=== PATIENT | female | born 1950 | race Caucasian/White ===

== ENCOUNTER 2022-08-02 09:43 | Day surgery (SDC) | payer MEDICARE, BC, SELFPAY ==
[2022-07-26 14:56] VITALS: BMI 28.7
--- NOTE | 2022-07-29 13:53 | MHC.SHP ---
Pre-Procedural Eval Section A Date of Service: 07/29/22 The patient is an INPATIENT: No Changes since office visit: No Cold of Flu in the past 2 weeks, No New Medical Problems, No Changes in Medication and No Patient answered all questions The History & Physical has been completed within 30 days and I have reviewed it.: Yes Section B Chief Complaint: Age-related nuclear cataract, left eye Plan Diagnosis/Plan: Unchanged I have reviewed the history and physical and performed a pertinent physical examination on my patient. No changes have occurred unless specified.
--- NOTE | 2022-07-30 10:17 | HO.ANESPROP2 ---
Documented by User: Yuli Rascon NP 07/30/22 10:18 HPI - Anesthesia Eval Consult details Narrative: 72yo F for Left Cataract Extraction IOL Insertion PCP cleared No previous cataract on record PMFSH Past Medical History Medical History Elevated cholesterol Osteoporosis Surgical History Surgical History Hx of colonoscopy Hx of hand surgery Hx of wisdom tooth extraction Social History Social History Are you a primary career guidance technician to a significant other at home: No Do you presently have visiting nurse or other home services: No Patient Tobacco Use Status: Never used Tobacco Use of substances other than those prescribed or required for medical reasons: No Have you been hit, kicked, punched, or otherwise hurt by someone within the past year? If so, by whom?: No Are you DNR?: No Advance Directives: No Advance Directives Information Provided: Yes Advance Directives on File: No Recently lost weight without trying: No Meds Allergies Allergy/AdvReac Type Severity Reaction Status Date / Time alendronate sodium Allergy Hives Verified 07/29/22 14:50 Home Medications Medication Instructions Recorded Confirmed Last Taken Type atorvastatin 40 mg tablet 1 tab PO DAILY 07/26/22 07/26/22 Unknown History cholecalciferol (vitamin D3) 25 25 mcg PO DAILY 07/26/22 07/26/22 Unknown History mcg (1,000 unit) capsule (Vitamin D3) coQ10 (ubiquinol) 100 mg capsule 200 mg PO DAILY 07/26/22 07/26/22 Unknown History flaxseed oil 1,000 mg capsule 1,000 mg PO DAILY 07/26/22 07/26/22 Unknown History multivitamin 1 tab PO DAILY 07/26/22 07/26/22 Unknown History Exam Exam Date and Time: July 30, 2022 1017 Height,Weight and Vital Signs: Height 5 ft Weight 66.678 kg Assessment and Plan Assessment Anesthesia Assessment: Chart Reviewed Documented by User: Raghu Gordon MD 08/02/22 12:07 [facility] Past Medical History Medical History Elevated cholesterol Osteoporosis Family History Family history of problems with anesthesia: No Surgical History Surgical History Hx of colonoscopy Hx of hand surgery Hx of wisdom tooth extraction History of Problems with Anesthesia: No Social History Social History Are you a primary career guidance technician to a significant other at home: No Do you presently have visiting nurse or other home services: No Patient Tobacco Use Status: Never used Tobacco Use of substances other than those prescribed or required for medical reasons: No Have you been hit, kicked, punched, or otherwise hurt by someone within the past year? If so, by whom?: No Are you DNR?: No Advance Directives: No Advance Directives Information Provided: Yes Advance Directives on File: No Recently lost weight without trying: No Meds Allergies Allergy/AdvReac Type Severity Reaction Status Date / Time alendronate sodium Allergy Hives Verified 07/29/22 14:50 Home Medications Medication Instructions Recorded Confirmed Last Taken Type atorvastatin 40 mg tablet 1 tab PO DAILY 07/26/22 07/26/22 Unknown History cholecalciferol (vitamin D3) 25 25 mcg PO DAILY 07/26/22 07/26/22 Unknown History mcg (1,000 unit) capsule (Vitamin D3) coQ10 (ubiquinol) 100 mg capsule 200 mg PO DAILY 07/26/22 07/26/22 Unknown History flaxseed oil 1,000 mg capsule 1,000 mg PO DAILY 07/26/22 07/26/22 Unknown History multivitamin 1 tab PO DAILY 07/26/22 07/26/22 Unknown History Exam Airway Mallampati Class: II TM Dist: >3cm Neck ROM: Full Loose/Missing/Broken Teeth: Yes (many crowns, 1 upper craacked crown) Heart: rrr+[id number] Lungs: cta b/l Assessment and Plan Assessment Anesthesia Assessment: Anesthesia Plan Discussed Final Anesthetic Review Family History of Problems with Anesthesia: No History of Problems with Anesthesia: No NPO: Yes ASA Class: II Final Preanesthetic Review: No Changes in Pt Med Stat, Meds/Allgs Chart Reviewed, Consent Obtained/Reviewed and Anes Risks/Benef Reviewed Patient Risk: Intermediate Procedure Risk: Low Assessment/Block/Sedation in SS: Assess/Block/Sedation-SS Anesthetic Plan Anesthetic Plan: MAC: and Agree w/ Assess. and Plan Disposition: Standard PACU
[2022-08-02 11:44] VITALS: BP 149/69; PULSE 76; RESP 16; TEMP 36.7; O2SAT 95
[2022-08-02] MEDS: Tetracaine HCl/PF 0.5% Oph Sol 4 ML DROPS 1 DROP EYE-LEFT (11:50)
[2022-08-02] MEDS: Lactated Ringers 500 ML 50 ML IV (11:57)
[2022-08-02] MEDS: Cyclopentolate 1 % Ophth Sol 2 ML DRPBTL 1 DROP EYE-LEFT ×3 (11:57→12:06)
[2022-08-02] MEDS: Tropicamide 1 % Ophth Sol 3 ML BTL 1 DROP EYE-LEFT ×3 (11:58→12:07)
[2022-08-02] MEDS: Phenylephrine HCL 2.5% Oph SoL 2 ML BOTTLE 1 DROP EYE-LEFT ×3 (12:00→12:09)
--- NOTE | 2022-08-02 13:11 | HO.PNOPHT ---
Ophthalmology Procedure Procedure Date of Service: 08/02/22 Ophthalmology Viscoelastic: Healon Duet Dual Pack Pro Ophthalmology Lenses: TECNIS [id number] (16.5) Procedure Notes: PREOPERATIVE DIAGNOSIS: Decreased visual acuity left eye secondary to cataract POSTOPERATIVE DIAGNOSIS: Same PROCEDURE: Left cataract extraction with intraocular lens insertion SURGEON: Shalom Navarrete M.D. ANESTHESIA: Topical/MAC ESTIMATED BLOOD LOSS: None COMPLICATIONS: None After obtaining informed consent, the patient was brought to the operation room suite and placed in the supine position. After adequate sedation per anesthesia, topical drops of Tetracaine were given to the left eye. The eye was then prepped and draped in the usual sterile fashion. The operating room microscope was then positioned over the operative eye and a lid speculum placed. A paracentesis was created. Viscoelastic was then instilled into the anterior chamber. A three plane incision was then created temporally, utilizing a 2.85 mm keratome. Capsulotomy forceps were then utilized to create a circular tear capsulotomy. Hydrodissection and hydrodelineation were carried out until adequate mobilization of the nucleus occurred. Phacoemulsification was then utilized to remove the dense central nucleus followed by removal of the cortical material utilizing the automated aspiration irrigation unit. Viscoat elastic was instilled into the posterior capsular bag followed by placement of a posterior chamber intraocular lens without difficulty. The residual Viscoat elastic was then removed utilizing the automated IA machine. The wound was check and found to be watertight. The patient tolerated the procedure well and the lid speculum was removed. Intracameral injection of Vigamox 0.1 mL followed by a subtenon injection of Kenalog-40 0.2 mL were administered. The patient will be seen in the a.m.
[2022-08-02 13:45] VITALS: BP 138/73; PULSE 81; RESP 16; TEMP 36.1; O2SAT 95
== END 2022-08-02 13:57 | disposition home or self-care (01) ==
PROVIDERS: PCP Internal Medicine; Visit Provider Ophthalmology
PROC: (CPT 66985; principal; 2022-08-02 13:00)
DX: H25.12 Age-related nuclear cataract, left eye (principal); H52.4 Presbyopia; H35.433 Paving stone degeneration of retina, bilateral; Z83.511 Family history of glaucoma; E78.00 Pure hypercholesterolemia, unspecified; Z88.8 Allergy status to other drugs, medicaments and biological substances; Z79.899 Other long term (current) drug therapy
CPT/HCPCS: 66984; J2250; J3010; J3300; V2632

== ENCOUNTER 2022-08-16 09:56 | Day surgery (SDC) | payer MEDICARE, BC, SELFPAY ==
[2022-07-26 14:58] VITALS: BMI 28.7
--- NOTE | 2022-08-13 08:58 | P.CONAN_ITS ---
Documented by User: Yuli Rascon NP 08/13/22 08:58 HPI - Anesthesia Eval Consult details Narrative: 72yo F for Right Cataract Extraction IOL Insertion PCP cleared Left eye 08/02/22 with MAC: Fent 50, Midaz 2 PMFSH Past Medical History Medical History Elevated cholesterol Osteoporosis PONV (postoperative nausea and vomiting) Family History Family history of problems with anesthesia: No Surgical History Surgical History Hx of colonoscopy Hx of hand surgery Hx of wisdom tooth extraction History of Problems with Anesthesia: No Social History Social History Are you a primary home health care provider to a significant other at home: No Do you presently have visiting nurse or other home services: No Patient Tobacco Use Status: Never used Tobacco Use of substances other than those prescribed or required for medical reasons: No Have you been hit, kicked, punched, or otherwise hurt by someone within the past year? If so, by whom?: No Are you DNR?: No Advance Directives: No Advance Directives Information Provided: Yes Advance Directives on File: No Recently lost weight without trying: No Meds Allergies Allergy/AdvReac Type Severity Reaction Status Date / Time alendronate sodium Allergy Hives Verified 07/29/22 14:50 Home Medications Medication Instructions Recorded Confirmed Last Taken Type atorvastatin 40 mg tablet 1 tab PO DAILY 07/26/22 07/26/22 Unknown History cholecalciferol (vitamin D3) 25 25 mcg PO DAILY 07/26/22 07/26/22 Unknown History mcg (1,000 unit) capsule (Vitamin D3) coQ10 (ubiquinol) 100 mg capsule 200 mg PO DAILY 07/26/22 07/26/22 Unknown History flaxseed oil 1,000 mg capsule 1,000 mg PO DAILY 07/26/22 07/26/22 Unknown History multivitamin 1 tab PO DAILY 07/26/22 07/26/22 Unknown History Exam Exam Date and Time: August 13, 2022 0858 Height,Weight and Vital Signs: Height 5 ft Weight 66.678 kg Assessment and Plan Final Anesthetic Review Family History of Problems with Anesthesia: No History of Problems with Anesthesia: No Documented by User: Grecia Langford MD 08/16/22 11:21 HPI - Anesthesia Eval Consult details Narrative: 72yo F for Right Cataract Extraction IOL Insertion PCP cleared Left eye 08/02/22 with MAC: Fent 50, Midaz 2. PONV post cataract surgery PMFSH Past Medical History Medical History Elevated cholesterol Osteoporosis PONV (postoperative nausea and vomiting) Surgical History Surgical History Hx of colonoscopy Hx of hand surgery Hx of wisdom tooth extraction Social History Social History Are you a primary home health care provider to a significant other at home: No Do you presently have visiting nurse or other home services: No Patient Tobacco Use Status: Never used Tobacco Use of substances other than those prescribed or required for medical reasons: No Have you been hit, kicked, punched, or otherwise hurt by someone within the past year? If so, by whom?: No Are you DNR?: No Advance Directives: No Advance Directives Information Provided: Yes Advance Directives on File: No Recently lost weight without trying: No Meds Allergies Allergy/AdvReac Type Severity Reaction Status Date / Time alendronate sodium Allergy Hives Verified 07/29/22 14:50 Home Medications Medication Instructions Recorded Confirmed Last Taken Type atorvastatin 40 mg tablet 1 tab PO DAILY 07/26/22 07/26/22 Unknown History cholecalciferol (vitamin D3) 25 25 mcg PO DAILY 07/26/22 07/26/22 Unknown History mcg (1,000 unit) capsule (Vitamin D3) coQ10 (ubiquinol) 100 mg capsule 200 mg PO DAILY 07/26/22 07/26/22 Unknown History flaxseed oil 1,000 mg capsule 1,000 mg PO DAILY 07/26/22 07/26/22 Unknown History multivitamin 1 tab PO DAILY 07/26/22 07/26/22 Unknown History Exam Height,Weight and Vital Signs: Height 5 ft Weight 66.678 kg Vital Signs Temp Pulse Resp BP Pulse Ox O2 Del Method 08/16/22 10:31 96.9 F 66 17 143/70 H 97 Room Air Airway Mallampati Class: II TM Dist: >3cm Neck ROM: Full Loose/Missing/Broken Teeth: Yes (Broken tooth top right back) Heart: RRR Lungs: CTAB Assessment and Plan Assessment Anesthesia Assessment: Anesthesia Plan Discussed and Chart Reviewed Final Anesthetic Review NPO: Yes ASA Class: II Final Preanesthetic Review: No Changes in Pt Med Stat, Meds/Allgs Chart Reviewed, Consent Obtained/Reviewed and Anes Risks/Benef Reviewed Patient Risk: Low Procedure Risk: Low Assessment/Block/Sedation in SS: Assess/Block/Sedation-SS Anesthetic Plan Anesthetic Plan: MAC: Disposition: Standard PACU
--- NOTE | 2022-08-13 09:22 | MHC.SHP ---
Pre-Procedural Eval Section A Date of Service: 08/13/22 The patient is an INPATIENT: No Changes since office visit: No Cold of Flu in the past 2 weeks, No New Medical Problems, No Changes in Medication and No Patient answered all questions The History & Physical has been completed within 30 days and I have reviewed it.: Yes Section B Chief Complaint: Age-related nuclear cataract, right eye Allergies: Allergies Allergy/AdvReac Type Severity Reaction Status Date / Time alendronate sodium Allergy Hives Verified 07/29/22 14:50 Plan Diagnosis/Plan: Unchanged I have reviewed the history and physical and performed a pertinent physical examination on my patient. No changes have occurred unless specified.
[2022-08-16] MEDS: Scopolamine 1.5 MG PATCH.TD.3 TRANSDERMA (10:00)
[2022-08-16 10:31] VITALS: BP 143/70; PULSE 66; RESP 17; TEMP 36.1; O2SAT 97
[2022-08-16] MEDS: Cyclopentolate 1 % Ophth Sol 2 ML DRPBTL 1 DROP EYE-RIGHT ×3 (10:43→10:46)
[2022-08-16] MEDS: Tetracaine HCl/PF 0.5% Oph Sol 4 ML DROPS 1 DROP EYE-RIGHT (10:43)
[2022-08-16] MEDS: Lactated Ringers 500 ML 50 ML IV (10:43)
[2022-08-16] MEDS: Tropicamide 1 % Ophth Sol 3 ML BTL 1 DROP EYE-RIGHT ×3 (10:43→10:46)
[2022-08-16] MEDS: Phenylephrine HCL 2.5% Oph SoL 2 ML BOTTLE 1 DROP EYE-RIGHT ×3 (10:44→10:46)
--- NOTE | 2022-08-16 12:39 | HO.PNOPHT ---
Ophthalmology Procedure Procedure Date of Service: 08/16/22 Ophthalmology Viscoelastic: Keyon Sweeneyt Dual Pack Pro Ophthalmology Lenses: TECCARRIE [id number] (17) Procedure Notes: PREOPERATIVE DIAGNOSIS: Decreased visual acuity right eye secondary to cataract POSTOPERATIVE DIAGNOSIS: Same PROCEDURE: Right cataract extraction with intraocular lens insertion SURGEON: Shalom Navarrete M.D. ANESTHESIA: Topical/MAC ESTIMATED BLOOD LOSS: None COMPLICATIONS: None After obtaining informed consent, the patient was brought to the operating room suite and placed in the supine position. After adequate sedation per anesthesia, topical drops of Tetracaine were given to the right eye. The eye was then prepped and draped in the usual sterile fashion. The operating room microscope was then positioned over the operative eye and a lid speculum placed. A paracentesis was created. Viscoelastic was then instilled into the anterior chamber. A three plane incision was then created temporally, utilizing a 2.85 mm keratome. Capsulotomy forceps were then utilized to create a circular tear capsulotomy. Hydrodissection and hydrodelineation were carried out until adequate mobilization of the nucleus occurred. Phacoemulsification was then utilized to remove the dense central nucleus followed by removal of the cortical material utilizing the automated aspiration irrigation unit. Viscoelastic was instilled into the posterior capsular bag followed by placement of a posterior chamber intraocular lens without difficulty. The residual Viscoelastic was then removed utilizing the automated IA machine. The wound was checked and found to be watertight. The patient tolerated the procedure well and the lid speculum was removed. Intracameral injection of Vigamox 0.1 mL followed by a subtenon injection of Kenalog-40 0.2 mL were administered. The patient will be seen in the a.m.
[2022-08-16 13:05] VITALS: BP 135/68; PULSE 80; RESP 16; TEMP 36.6; O2SAT 96
== END 2022-08-16 13:18 | disposition home or self-care (01) ==
PROVIDERS: PCP Internal Medicine; Visit Provider Ophthalmology
PROC: (CPT 66985; principal; 2022-08-16 12:30)
DX: H25.11 Age-related nuclear cataract, right eye (principal); H52.4 Presbyopia; H35.433 Paving stone degeneration of retina, bilateral; E78.49 Other hyperlipidemia; M81.0 Age-related osteoporosis without current pathological fracture; Z79.899 Other long term (current) drug therapy; Z88.8 Allergy status to other drugs, medicaments and biological substances
CPT/HCPCS: 66984; J2250; J3010; J3300; V2632